=== PATIENT | female | born 1960 | race American Indian/Alaskan Native ===

== ENCOUNTER 2019-04-24 14:22 | Emergency (ER) | payer OTHER ==
[2019-04-24 14:29] VITALS: BP 124/77
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
== END 2019-04-24 16:42 | disposition home or self-care (01) ==
LOC: ED 14:22
DX: S39.012A Strain of muscle, fascia and tendon of lower back, initial encounter (principal); S16.1XXA Strain of muscle, fascia and tendon at neck level, initial encounter; I10 Essential (primary) hypertension; J45.909 Unspecified asthma, uncomplicated; Z88.6 Allergy status to analgesic agent; Z88.5 Allergy status to narcotic agent; V49.59XA Passenger injured in collision with other motor vehicles in traffic accident, initial encounter; Y93.89 Activity, other specified; Y92.410 Unspecified street and highway as the place of occurrence of the external cause; Y99.8 Other external cause status
CPT/HCPCS: 72040; 72100

== ENCOUNTER 2019-05-23 11:00 | Outpatient (CLI) | payer OTHER | END 2019-05-23 11:01 | disposition home or self-care (01) | LOC: SLR 11:00 | PROVIDERS: ATTEND Otolaryngology | DX: G47.30 Sleep apnea, unspecified (principal) | CPT/HCPCS: G0399 ==

== ENCOUNTER 2020-05-03 09:23 | Outpatient (CLI) | payer OTHER ==
--- NOTE | 2020-05-03 10:36 | XRay Report ---
LUMBOSACRAL SPINE 3 VIEWS INDICATION / CLINICAL INFORMATION: BACK PAIN. COMPARISON: 04/24/2019 FINDINGS: VERTEBRAE: No acute fracture. Grade 1 anterolisthesis of L5 on S1. DISC SPACES / FACET JOINTS:Intervertebral disc spaces are satisfactorily maintained. Lower lumbar fac et degenerative arthrosis is present. Findings are overall unchanged when compared to 04/24/2019. PARASPINAL SOFT TISSUES:No significant abnormality. ADDITIONAL FINDINGS: Left SI joint fusion. Right SI joint degenerative change. Signer Name: Wenceslao Villanueva MD Signed: 05/03/2020 10:32 AM Workstation Name: [id number]
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
== END 2020-05-03 09:24 | disposition home or self-care (01) ==
LOC: XRAY 09:23
PROVIDERS: ATTEND Internal Medicine
DX: M47.816 Spondylosis without myelopathy or radiculopathy, lumbar region (principal); M25.552 Pain in left hip; M25.551 Pain in right hip; R93.7 Abnormal findings on diagnostic imaging of other parts of musculoskeletal system; Z98.1 Arthrodesis status
CPT/HCPCS: 72100; 73521